=== PATIENT | female | born 1945 | race Caucasian/White ===

== ENCOUNTER → 2016-05-04 | Outpatient (CLI) | payer MEDICARE | LOC: EXRD 11:27 | DX: M25.571 Pain in right ankle and joints of right foot (principal); M79.671 Pain in right foot; M77.51 Other enthesopathy of right foot and ankle | CPT/HCPCS: 73600; 73630 ==

== ENCOUNTER → 2016-05-09 | Outpatient (CLI) | payer MEDICARE | LOC: HEART 5 11:00 | DX: I73.9 Peripheral vascular disease, unspecified (principal) | CPT/HCPCS: 93925 ==

== ENCOUNTER → 2020-03-18 | Outpatient (CLI) | payer MEDICARE ==
[~2020-03-18] MED LIST: ALDACTONE50 MG PO; ANTIVERT 12.512.5 MG PO; CATAPRES 0.1MG0.1 MG PO; CYANOCOBAL1000 MCG/1 INJ; DIGOXIN125 MCG PO; ELIQUIS5 MG PO; ERYTHROMYCIN O3.5 GM OU; FLONASE ALLER15.8 ML; IMDUR ER TAB 3030 MG PO; IPRAT-ALBUT 0.5-3 ML INH; JARDIANCE10 MG PO; LEVAQUIN500 MG PO; LOPRESSOR100 MG PO; LORTAB 5-325 M1 EACH PO; NITROGLYCERIN0.4 MG SL; PRAVACHOL40 MG PO; PRINIVIL5 MG PO; SYNTHROID125 MCG PO; TRAMADOL HCL50 MG PO; TYLENOL 500 MG500 MG PO; VENTOLIN HFA 66.7 GM INH; VOLTAREN100 GM TP; ZOFRAN 4 MG TAB4 MG PO; ZOLOFT50 MG PO
== END ==
LOC: EXRD 13:30
DX: S86.012A Strain of left Achilles tendon, initial encounter (principal); M79.602 Pain in left arm; R93.6 Abnormal findings on diagnostic imaging of limbs; X58.XXXA Exposure to other specified factors, initial encounter
CPT/HCPCS: 76881

== ENCOUNTER → 2020-04-21 | Outpatient (CLI) | payer MEDICARE | LOC: KOH-I 14:42 | DX: M79.672 Pain in left foot (principal); M25.572 Pain in left ankle and joints of left foot | CPT/HCPCS: 73610; 73630 ==

== ENCOUNTER → 2021-02-04 | Outpatient (CLI) | payer MEDICARE | LOC: HEART 5 09:00 | DX: I20.9 Angina pectoris, unspecified (principal); M79.606 Pain in leg, unspecified; I08.1 Rheumatic disorders of both mitral and tricuspid valves; I27.20 Pulmonary hypertension, unspecified; Z95.0 Presence of cardiac pacemaker | CPT/HCPCS: 93306; J2785 ==

== ENCOUNTER 2021-08-13 18:30 | Emergency (ER) | payer OTHER, MEDICARE ==
[2021-08-14] MEDS ORDERED: PERCOCET 5/325 T1 EA PO (02:05)
[2021-08-14] MEDS ORDERED: PERCOCET 5-3251 EACH PO (18:58)
== END 2021-08-14 02:25 | disposition home or self-care (01) ==
LOC: ER1 18:30
DX: S91.311A Laceration without foreign body, right foot, initial encounter (principal); S40.812A Abrasion of left upper arm, initial encounter; S40.811A Abrasion of right upper arm, initial encounter; S80.812A Abrasion, left lower leg, initial encounter; S80.811A Abrasion, right lower leg, initial encounter; I10 Essential (primary) hypertension; I48.91 Unspecified atrial fibrillation; E11.9 Type 2 diabetes mellitus without complications; E78.5 Hyperlipidemia, unspecified; Z95.0 Presence of cardiac pacemaker; Z91.041 Radiographic dye allergy status; Z88.5 Allergy status to narcotic agent; Z23 Encounter for immunization; V49.9XXA Car occupant (driver) (passenger) injured in unspecified traffic accident, initial encounter; Y92.410 Unspecified street and highway as the place of occurrence of the external cause
CPT/HCPCS: 70450; 71045; 71250; 72125; 72128; 72131; 73030; 73090; 73610; 90471; 90715; 99284

== ENCOUNTER 2021-08-14 17:44 | Emergency (ER) | payer OTHER, MEDICARE ==
[~2021-08-14 17:44] MED LIST changes: +PERCOCET 5/325 T1 EA PO
[2021-08-14] MEDS ORDERED: PERCOCET 5-3251 EACH PO (18:58)
== END 2021-08-14 19:19 | disposition home or self-care (01) ==
LOC: ER1 17:44
DX: S12.9XXA Fracture of neck, unspecified, initial encounter (principal); S90.32XA Contusion of left foot, initial encounter; V49.40XA Driver injured in collision with unspecified motor vehicles in traffic accident, initial encounter; Y92.410 Unspecified street and highway as the place of occurrence of the external cause
CPT/HCPCS: 99283

== ENCOUNTER → 2021-09-06 | Outpatient (CLI) | payer MEDICARE ==
[~2021-09-06] MED LIST changes: +PERCOCET 5-3251 EACH PO
== END ==
LOC: EXRD 13:39
DX: M79.18 Myalgia, other site (principal); M54.50 Low back pain, unspecified; M47.816 Spondylosis without myelopathy or radiculopathy, lumbar region; M43.16 Spondylolisthesis, lumbar region; M16.12 Unilateral primary osteoarthritis, left hip
CPT/HCPCS: 72100; 73502

== ENCOUNTER → 2021-10-22 | Outpatient (CLI) | payer MEDICARE, OTHER | LOC: KOH-I 15:42 | DX: Z13.29 Encounter for screening for other suspected endocrine disorder (principal) | CPT/HCPCS: 76536 ==